=== PATIENT | male | born 2000 | race Caucasian/White ===

== ENCOUNTER 2021-07-29 08:00 | Outpatient (CLI) | payer OTHER ==
[2021-07-29 18:07] LABS: BASOPHILS # (AUTO) 0.1 10^3/uL (0.0-0.1); BASOPHILS % (AUTO) 1.4 %; EOSINOPHILS # (AUTO) 0.2 10^3/uL (0.0-0.7); EOSINOPHILS % (AUTO) 3.9 %; HCT - HEMATOCRIT 44.1 % (42.0-52.0); HGB - HEMOGLOBIN 14.4 g/dL (14.0-18.0); LYMPHOCYTES # (AUTO) 1.9 10^3/uL (1.5-3.5); LYMPHOCYTES % (AUTO) 32.1 %; MEAN CORPUSCULAR HEMOGLOBIN 28.2 pg (27.0-31.0); MEAN CORPUSCULAR HGB CONC 32.7 g/dL (32.0-36.0); MEAN CORPUSCULAR VOLUME 86.5 fL (80.0-94.0); MEAN PLATELET VOLUME 11.6 fL (7.4-11.4); MONOCYTES # (AUTO) 0.6 10^3/uL (0.0-1.0); MONOCYTES % (AUTO) 9.6 %; NEUTROPHILS # (AUTO) 3.1 10^3/uL (1.5-6.6); NEUTROPHILS % (AUTO) 52.8 %; PLT - PLATELET COUNT 222 10^3/uL (130-450); RED CELL DISTRIBUTION WIDTH 11.9 % (12.0-15.0); WHITE BLOOD COUNT 5.9 x10^3/uL (4.8-10.8)
[2021-07-29 18:12] LABS: ALBUMIN 4.8 g/dL (3.2-5.5); ALBUMIN/GLOBULIN RATIO 1.9 (1.0-2.2); BILIRUBIN,TOTAL 0.8 mg/dL (0.2-1.0); CALCIUM 9.3 mg/dL (8.5-10.3); POTASSIUM 3.6 mmol/L (3.5-5.0); TOTAL PROTEIN 7.3 g/dL (6.7-8.2)
== END 2021-07-29 23:59 ==
LOC: LAB.N 08:00
PROVIDERS: ATTEND Family Medicine
DX: R10.9 Unspecified abdominal pain (principal); R11.10 Vomiting, unspecified; Z20.822 Contact with and (suspected) exposure to COVID-19
CPT/HCPCS: 36415; 80053; 85025

== ENCOUNTER 2021-07-29 08:00 | Outpatient (CLI) | payer OTHER ==
--- NOTE | 2021-07-29 14:02 | XRAY Report ---
PROCEDURE: Abdomen 2 View X-Ray INDICATIONS: ABDOMINAL PX, AND VOMITING TECHNIQUE: 2 views of the abdomen were acquired. COMPARISON: None. FINDINGS: Surgical changes and devices: None. Bowel: No pneumoperitoneum. Scattered colonic gas. Fecal residue seen in the colon. Relative possibl y of small bowel gas. No dilated loops of bowel seen. Soft tissues: No masses; visualized solid organ contours appear normal in size. No suspicious abdom inal calcifications. Lung bases are clear. Bones: No suspicious bony abnormalities. IMPRESSION: Nonobstructive bowel gas pattern. Reviewed by: Piero Valentin MD on 07/29/2021 2:01 PM PDT Approved by: Piero Valentin MD on 07/29/2021 2:01 PM PDT Station ID: [id number]
== END 2021-07-29 23:59 | disposition home or self-care (01) ==
LOC: DI.N 08:00
PROVIDERS: ATTEND Family Medicine
DX: R10.9 Unspecified abdominal pain (principal); R11.10 Vomiting, unspecified; Z20.822 Contact with and (suspected) exposure to COVID-19
CPT/HCPCS: 36415; 80053; 85025